=== PATIENT | male | born 1940 | race Caucasian/White ===

== ENCOUNTER 2017-10-14 10:48 | Emergency (ER) | payer OTHER ==
[2012-01-20 15:04] VITALS: BMI 26.6
[2017-10-14 11:44] LABS: BASOPHILS 0.3 % (0-2); EOSINOPHILS 0.8 % (0-7); HEMATOCRIT 36.2 % (42.0-54.0); LYMPHOCYTES 13.1 % (15-50); MCH 29.3 pg (26.0-34.0); MCHC 33.1 g/dL (31.0-37.0); MCV 88.3 fL (80.0-100.0); MEAN PLATELET VOLUME 9.9 fL (7.4-10.4); MONOCYTES 5.3 % (2-11); NEUTROPHILS 80.5 % (40-80); PLATELET COUNT 164 10x3/uL (130-400); RDW 13.1 % (11.5-14.5)
[2017-10-14 11:57] LABS: ALBUMIN 3.3 g/dL (3.4-5.0); ALKALINE PHOSPHATASE 127 U/L (46-116); ALT (SGPT) 24 U/L (10-68); BILIRUBIN - TOTAL 0.39 mg/dL (0.2-1.3); CALC OSMOLALITY 285 mosm/kg (275-300); CALCIUM 8.7 mg/dL (8.5-10.1); CARBON DIOXIDE 28.8 mmol/L (21.0-32.0); CHLORIDE - SERUM 104 mmol/L (98-107); CREATININE - SERUM 1.4 mg/dL (0.6-1.3); POTASSIUM - SERUM 4.4 mmol/L (3.5-5.1); PROTEIN - SERUM 6.4 g/dL (6.4-8.2); SODIUM 140 mmol/L (136-145); UREA NITROGEN 11 mg/dL (7-18); eGFR NON AFRICAN AMERICAN 52 mL/min (90-120)
[2017-10-14 12:03] LABS: GLUCOSE 242 mg/dL (74-106)
[2017-10-14 12:08] LABS: CHOLESTEROL, TOTAL 112 mg/dL (0-200); CREATINE KINASE 60 UL (21-232); HDL CHOLESTEROL 55 mg/dL (32-96); LDL CHOLESTEROL 49 mg/dL (0-100); LDL-HDL RATIO 0.9 ratio (1.5-3.5); TRIGLYCERIDE 40 mg/dL (30-200); TROPONIN-I 0.026 ng/mL (0.000-0.060)
== END 2017-10-14 21:23 | disposition short-term general hospital (02) ==
LOC: D.ER 10:48
PROVIDERS: Emergency Medicine
DX: R07.9 Chest pain, unspecified (principal); K21.9 Gastro-esophageal reflux disease without esophagitis; I10 Essential (primary) hypertension; I44.0 Atrioventricular block, first degree; I45.10 Unspecified right bundle-branch block